=== PATIENT | female | born 1970 | race Caucasian/White ===

== ENCOUNTER 2017-02-12 01:47 | Observation (INO) | payer BC ==
--- OUTSIDE RECORDS SUMMARY | 2017-02-12 01:55 | XMS REPORT | Continuity of Care Document ---
:1970 Author Organization [employer] [place] [address] Care Team Providers Name Role Phone Unavailable Primary Care Provider Unavailable Source Comments This disclosure is being made pursuant to the [employer] program and maynot contain all information available regarding this patient.[facility] Active Allergies and Adverse Reactions Not on File Current Medications Be aware that medications may not be up to date as of this document. Alwaysverify current medications with the patient. Not on file Active Problems Not on file Social History Tobacco Use Types Packs/Day Years Used Date Never Assessed Plan of Care Health Maintenance Due Date Last Done Comments Retired-Pertussis Vaccine Adult 1988 Retired-Tetanus Vaccine Adult 1988 Pap Smear 1990 Mammogram 2009 Retired-INFLUENZA VACCINE 05/08/2015 Results from Last 3 Months Not on file
--- NOTE | 2017-02-12 02:01 | ERNOTE ---
Abdominal HPI - General Source: patient Exam Limitations: no limitations - Immun/Allergies/Home Medications Allergies/Adverse Reactions: Allergies paclitaxel [From Taxol] Allergy (Verified 02/12/17 01:55) Home Medications: HOME MEDICATIONS Insulin Aspart [Novolog Flexpen] 30 unit SQ TID 02/12/17 [Last Taken Unknown] Insulin Glargine,Hum.rec.anlog [Lantus] 60 units SC HS 02/12/17 [Last Taken Unknown] - History of Present Illness Narrative: Pt states she had onset of abdominal pain at 05:00 yesterday this progressed and she presented to [facility] where she was diagnosed with acute appendicitis. Dr. Walsh called and requested transfer as they do not have a general surgeon data control assistant. I spoke with Dr. Hoang and he agreed to accept the patient. Pt brought here by [facility] from [facility]. Pt arrives stable and alert and oriented in some discomfort. Timing: constant Quality: moderate, severe Physical Exam - Physical Exam General Appearance: Present: wd/wn, alert, mild distress Eye Exam: Normal inspection: bilateral, PERRL: bilateral Ears, Nose, Throat: Present: normal ENT inspection Neck: Present: normal inspection, supple Respiratory: Present: no respiratory distress, no accessory muscle use, lungs clear Cardiovascular/Chest: Present: regular rate, rhythm, no murmur Gastrointestinal/Abdominal: Present: normal bowel sounds, tenderness - RLQ, guarding Extremity Exam: Present: normal inspection, normal range of motion Neurological Exam: Present: alert, oriented, no motor/sensory deficits Skin Exam: Present: normal color, warm/dry ED Progress - Vital Signs Patient's Vital Signs:: I have reviewed the patient's vital signs. - Progress/Reassessment Progress Note-Subjective: 02/12/17 01:59 Spoke with Garima MALDONADOP hospitalist she agrees with admit. Notified her of patient's arrival. Departure - Departure Clinical Impression: Appendicitis Qualifiers: Appendicitis type: acute appendicitis Acute appendicitis type: with localized peritonitis Qualified Code(s): K35.3 - Acute appendicitis with localized peritonitis Disposition: [facility] Condition: Fair
--- OUTSIDE RECORDS SUMMARY | 2017-02-12 02:15 | XMS REPORT | Continuity of Care Document ---
:1970 Author Organization [employer] [place] [address] Care Team Providers Name Role Phone Unavailable Primary Care Provider Unavailable Source Comments This disclosure is being made pursuant to the [employer] program and maynot contain all information available regarding this patient.[facility] Active Allergies and Adverse Reactions Not on [...]
[2017-02-12] MEDS ORDERED: HYDROmorphone HCL 1 MG/ML DISP.SYRIN IV ONE (02:46)
[2017-02-12] MEDS ORDERED: ONDANSETRON HCL/PF 2 MG/ML VIAL IV ONE (02:46)
[2017-02-12] MEDS ORDERED: ONDANSETRON HCL/PF 2 MG/ML VIAL IV PRN (02:46)
[2017-02-12] MEDS ORDERED: ACETAMINOPHEN 325 MG TABLET PO PRN (02:49)
[2017-02-12] MEDS ORDERED: NORMAL SALINE 1,000 ML IV SCH (03:00)
[2017-02-12] MEDS ORDERED: PANTOPRAZOLE SODIUM 40 MG in NORMAL SALINE 100 ML IV SCH (03:00)
[2017-02-12 03:47] LABS: Prothrombin Time (Patient) 11.9 Seconds (9.4-11.4)
[2017-02-12 03:58] LABS: INR 1.14 INR (0.90-1.10); Partial Thrombolplastin Time 27.8 Seconds (24-32)
[2017-02-12] MEDS ORDERED: LEVOFLOXACIN/D5W 750 MG/150 ML BAG IV SCH (04:00)
[2017-02-12] MEDS ORDERED: FLUCONAZOLE 150 MG TABLET PO ONE (04:11)
--- NOTE | 2017-02-12 04:11 | HP ---
<Garima Blackwell - Last Filed: 02/12/17 03:39> Chief Complaint - Chief Complaint Date of Service: 02/12/17 Time of Service: 02:45 Chief Complaint: acute appendicitis History of Present Illness: Any is a 46 year old female with a PMH of DM (on insulin), morbid obesity, breast ca (last chemo 07/2016) who presented to [facility] with abdominal pain since 5 am the previous morning with n/v. temp 102 in [facility]. Labs at [facility] significant for wbc 13.6 with 84.4% neutrophils and 19 bands, glucose 270, bilirubin 1.7, amylase/lipase wnl. ct of abdomen/pelvis significant for acute appendicitis with mild intraperitoneal fluid, no evidence of abscess or appendiceal rupture. Patient transferred to [facility] for surgical consult and management of acute appendicitis. pt denies cp/dyspnea. c/o abdominal pain. states possible history of "mild sleep apnea" and 2 "prior episodes of an enlarged heart" but denies cardiomyopathy or CHF. Patient admitted for acute appendicitis with likely appendectomy this am. - Patient's Past Medical History Patient History - Medical: Cataracts, Diabetes Type 2, Obesity Patient History - Cardiac/Respiratory: Cardiomyopathy, Sleep Apnea - possible Patient History - Cancer: Breast Patient History - Surgical Procedures: Cataracts, ENT Patient History - Other: None LMP (females 10-50): unknown - pt states she believes 1 year ago - Family History Family History:: no family history of premature - Family History Father Family History - Medical: Family History - Cardiac/Respiratory: CHF, COPD Family History - Cancer: Bone, Myeloma mothe Family History - Medical: Family History - Cardiac/Respiratory: Myocardial Infarction Family History - Cancer: Breast - Social History Living Situations: spouse Abuse History: No History of abuse Psych History: Hx of Depression Smoking Status: Former smoker Have you smoked in the past 12 months: No Do you dip or chew tobacco: No Smoking Stop Date: 02/12/09 Patient requests Smoking Cessation Consult: No Initiate information on Smoking Cessation: No Alcohol Use: none Drug Use: none - Immunizations Immunizations Up to Date: Yes Review Of Systems (GEN) - Review of Systems Generalized/Overall Review: Present: Chills, Fever, Malaise EENTM: Present: No Symptoms Reported Respiratory: Present: No Symptoms Reported Cardiac: Present: No Symptoms Reported Abdominal: Present: Nausea, Vomiting, Abdominal Pain. Absent: Diarrhea Genitourinary: Present: No Symptoms Reported Musculoskeletal: Present: No Symptoms Reported Neurological: Present: No Symptoms Reported Skin: Present: No Symptoms Reported Endocrine: Present: No Symptoms Reported Misc: All systems neg except as marked Allergies/Adverse Reactions: Allergies Allergy/AdvReac Type Severity Reaction Status Date / Time paclitaxel [From Taxol] Allergy Verified 02/12/17 01:55 Home Medications: HOME MEDICATIONS Insulin Aspart [Novolog Flexpen] 30 unit SQ AC 02/12/17 [Last Taken Unknown] Insulin Glargine,Hum.rec.anlog [Lantus] 60 units SC HS 02/12/17 [Last Taken 02/21] Exam - Exam Vital Signs: Vital Signs - Last Taken Temp 36.7 C 02/12/17 02:13 Pulse 111 H 02/12/17 02:13 Resp 22 H 02/12/17 02:13 BP 116/74 02/12/17 02:13 Pulse Ox 91 02/12/17 02:13 Constitutional: Present: Alert, Cooperative, Mild distress ENT Exam: Present: hearing grossly normal Eye Exam: bilateral eye: normal inspection, PERRL Neck: Present: non-tender, supple Back Exam: Present: no vertebral tenderness Breasts: Present: Exam deferred Respiratory: Present: chest non-tender, no respiratory distress, no accessory muscle use, decreased breath sounds Cardiovascular/Chest: Present: normal peripheral pulses, regular rate, rhythm, no chest tenderness, tachycardia, systolic murmur - 2/4 Peripheral Pulses: dorsalis-pedis (R): 2+, dorsalis-pedis (L): 2+, radial (R): 2 +, radial (L): 2+ Abdomen: Present: soft, tender, guarding, rebound tenderness /Rectal: Present: Exam deferred Extremity: Present: non-tender, no pedal edema Skin Exam: Present: normal color, warm/dry, no cyanosis Assessment/Plan - Narrative Narrative: Acute appendicitis - consulted Dr. Arroyo, who will see her this am. - updated him on pt condition and reviewed [facility] labs and CT with him. - Start on abx (Dr. Arroyo in agreement) - CT shows mild free intraperitoneal fluid - ? intra-abdominal infection - Levaquin 750 mg iv Daily - Day #1 - zosyn 3.375 iv q 6 hours - Day #1 - Likely appendectomy this am, await consult by surgery - Labs show elevated wbc with high level of bands, pt with 102 fever at [facility]; tachycardic with elevated RR at [facility] - order labs / blood cultures to rule out sepsis. - check UA and culture as additional source of infection. - IV fluid bolus ordered after admission - patient is cleared for surgery this am. - higher risk due to history of tobacco abuse, morbid obesity, diabetes and history of cardiomyopathy. - higher risk discussed with patient, still wishes to proceed with surgery. - monitor on telemetry / cont pulse ox. - EKG shows sinus tachycardia with no st-t wave changes. DM - accu-checks QID - sliding scale insulin as needed - will need tight glycemic control post op for better surgical wound healing and improved outcomes. Sleep apnea, suspected - patient admits to "possible mild sleep apnea" - does not wear cpap at home - cont pulse ox - supplemental O2 as needed to keep sats above 90% Code status: full code VTE: early ambulation unless made inpatient postop gi proph: iv protonix. - Assessment/Plan (1) Acute appendicitis Problem: Acute QualifierTitle: Acute appendicitis type: unspecified acute appendicitis type Qualified Code(s): K35.80 - Unspecified acute appendicitis (2) Morbid obesity Problem: Chronic QualifierTitle: Obesity type: due to excess calories Qualified Code(s): E66.01 - Morbid (severe) obesity due to excess calories (3) Diabetes Problem: Chronic QualifierTitle: Diabetes mellitus type: type 2 Diabetes mellitus complication status: with hyperglycemia Diabetes mellitus mcfp insulin use: with mcfp use Qualified Code(s): E11.65 - Type 2 diabetes mellitus with hyperglycemia; Z79.4 - long-term (current) use of insulin (4) Breast CA Problem: Chronic QualifierTitle: Breast location: unspecified site of breast Estrogen receptor status: unspecified Patient sex: female Laterality: unspecified laterality Qualified Code(s): C50.919 - Malignant neoplasm of unspecified site of unspecified female breast (5) Sleep apnea Problem: Suspected QualifierTitle: Sleep apnea type: unspecified type Qualified Code(s): G47.30 - Sleep apnea, unspecified (6) Cardiomyopathy Problem: Chronic QualifierTitle: Cardiomyopathy type: unspecified Qualified Code(s): I42.9 - Cardiomyopathy, unspecified <Chris Altamirano - Last Filed: 02/12/17 09:22> Immunizations: IMMUNIZATION HX Immunizations Up to Date Yes Exam - Exam Vital Signs: Vital Signs - Last Taken Temp 37.1 C 02/12/17 06:24 Pulse 108 H 02/12/17 06:24 Resp 16 02/12/17 06:24 BP 117/69 02/12/17 06:24 Pulse Ox 96 02/12/17 06:24 Diagnostic Studies: Abnormal Lab Results 02/12/17 02/12/17 02/12/17 Range/Units 02:50 02:50 04:12 PT 11.9 H (9.4-11.4) Seconds INR (Anticoag Therapy) 1.14 H (0.90-1.10) INR Procalcitonin 1.80 H (0.05-0.50) ng/mL Urine Protein 100 H (NEGATIVE) mg/dL Urine Glucose (UA) 100 H (NEGATIVE) mg/dL Urine Bilirubin 3 H (NEGATIVE) mg/dl Ur Epithelial Cells 5-10 H (0-5) /hpf Laboratory Results PT 11.9 Seconds (9.4-11.4) H 02/12/17 02:50 INR (Anticoag Therapy) 1.14 INR (0.90-1.10) H 02/12/17 02:50 PTT ([place]) 27.8 Seconds (24-32) 02/12/17 02:50 Lactic Acid, Venous 1.7 mmol/L (0.4-1.9) 02/12/17 02:50 Procalcitonin 1.80 ng/mL (0.05-0.50) H 02/12/17 02:50 Serum HCG, Qual Negative (NEGATIVE) 02/12/17 02:50 Urine Color Reddish brown 02/12/17 04:12 Urine Appearance Clear 02/12/17 04:12 Urine pH 5.5 pH (5.0-7.0) 02/12/17 04:12 Ur Specific [place] 1.010 SP.GR. (1.005-1.010) 02/12/17 04:12 Urine Protein 100 mg/dL (NEGATIVE) H 02/12/17 04:12 Urine Glucose (UA) 100 mg/dL (NEGATIVE) H 02/12/17 04:12 Urine Ketones 15 mg/dL (NEGATIVE) 02/12/17 04:12 Urine Blood Negative /ul (NEGATIVE) 02/12/17 04:12 Urine Nitrate Negative (NEGATIVE) 02/12/17 04:12 Urine Bilirubin 3 mg/dl (NEGATIVE) H 02/12/17 04:12 Urine Ictotest Negative (NEGATIVE) 02/12/17 04:12 Prot Sulfosalicylic Acd Negative mg/dL (0) 02/12/17 04:12 Urine Urobilinogen Normal EU/dl (NORMAL) 02/12/17 04:12 Ur Leukocyte Esterase Negative /ul (NEGATIVE) 02/12/17 04:12 Urine RBC None seen /hpf (0-5) 02/12/17 04:12 Urine WBC 0-5 /hpf (0-5) 02/12/17 04:12 Ur Epithelial Cells 5-10 /hpf (0-5) H 02/12/17 04:12 Urine Bacteria None seen (NONE) 02/12/17 04:12 Urine Culture Comments Culture to follow 02/12/17 04:12 Assessment/Plan - Narrative Narrative: I personally directed the care of this patient provided by our nurse practitioner hospitalist. There are no contraindications to appendectomy pending surgical consultation.
[2017-02-12 04:18] LABS: Urine Bilirubin 3 mg/dl (NEGATIVE); Urine Blood Negative /ul (NEGATIVE); Urine Ketone 15 mg/dL (NEGATIVE); Urine Nitrite Negative (NEGATIVE); Urine Protein 100 mg/dL (NEGATIVE); Urine Urobilinogen Normal (NORMAL); Urine pH 5.5 pH (5.0-7.0)
[2017-02-12 04:19] LABS: Urine Appearance Clear; Urine WBC 0-5 /hpf (0-5)
[2017-02-12 04:20] LABS: Urine Bacteria None Seen; Urine RBC None Seen /hpf (0-5)
[2017-02-12] MEDS ORDERED: FLUCONAZOLE 100 MG TABLET ONE (04:49)
[2017-02-12] MEDS ORDERED: RINGERS SOLUTION,LACTATED 1,000 ML IV PRN (05:52)
[2017-02-12] MEDS: PIPERACILLIN SODIUM/TAZOBACTAM 3.375 GM in DEXTROSE 5 % IN WATER 100 ML IV SCH ×4 (06:21→11:17)
[2017-02-12] MEDS: HYDROmorphone HCL 1 MG/ML DISP.SYRIN IV PRN ×4 (06:46→14:53)
[2017-02-12] MEDS: INSULIN LISPRO 100 UNITS/ML VIAL SC SCH ×4 (06:48→11:28)
[2017-02-12 09:32] LABS: Hematocrit 43.8 % (37.0-47.0); Hemoglobin 13.6 gm/dL (12.5-16.0); Mean Cell Volume 78.5 fl (78-100); Mean Corpuscular Hemoglobin 24.4 pg (27-31); Mean Corpuscular Hgb Conc 31.1 g/dl (32-36); Mean Platelet Volume 8.8 fl (6.0-9.5); Neutrophil % 81.1 % (42-75.0); Platelet Count 318 K/mm3 (150-450); Red Blood Count 5.58 M/mm3 (4.2-5.4); Red Cell Distribution Width 16.5 % (11.5-14.0); White Blood Count 17.3 K/mm3 (4.0-10.5)
--- NOTE | 2017-02-12 13:51 | CONS ---
HPI - General Date of Service: 02/12/17 Narrative: I have been asked to see this 46 y/o white female for acute appendicitis. She was seen in the [place] ER where the diagnosis was established and transferred to [facility] ER and admitted to the hospitalist service. She was given IV antibiotics and was hydrated. She currently complains of RLQ abdominal pain and pain with movement. WBC was 17K on admission. She has a tentative OR start at 1400. Source: patient, RN/MD Exam Limitations: no limitations - History of Present Illness Allergies/Adverse Reactions: Allergies paclitaxel [From Taxol] Allergy (Verified 02/12/17 01:55) Home Medications: Home Medications Medication Instructions Recorded Last Taken Insulin Aspart [Novolog Flexpen] 30 unit SQ AC 02/12/17 Unknown Insulin Glargine,Hum.rec.anlog 60 units SC HS 02/12/17 02/10/17 [Lantus] - Patient's Past Medical History Patient History - Medical: Cataracts, Diabetes Type 2, Obesity Patient History - Cardiac/Respiratory: Cardiomyopathy, Sleep Apnea - possible Patient History - Cancer: Breast Patient History - Surgical Procedures: Cataracts, ENT Patient History - Other: None LMP (females 10-50): unknown - pt states she believes 1 year ago - Family History Family History:: no family history of premature - Family History Father Family History - Medical: Family History - Cardiac/Respiratory: CHF, COPD Family History - Cancer: Bone, Myeloma mothe Family History - Medical: Family History - Cardiac/Respiratory: Myocardial Infarction Family History - Cancer: Breast - Social History Living Situations: spouse Abuse History: No History of abuse Psych History: Hx of Depression Smoking Status: Former smoker Have you smoked in the past 12 months: No Do you dip or chew tobacco: No Smoking Stop Date: 02/12/09 Patient requests Smoking Cessation Consult: No Initiate information on Smoking Cessation: No Alcohol Use: none Drug Use: none - Immunizations Immunizations Up to Date: Yes Medications - Medications Current Medications: Current Medications Hydromorphone HCl (Dilaudid) 0.5 mg IV Q1H PRN PRN Reason: Severe Pain Stop: 03/14/17 02:46 Last Admin: 02/12/17 13:15 Dose: 0.5 mg Pantoprazole Sodium 40 mg/ (Sodium Chloride) 100 mls @ 400 mls/hr IV HS EUFEMIA Stop: 03/14/17 03:01 Last Infusion: 02/12/17 04:34 Dose: Infused Levofloxacin/Dextrose (Levaquin) 750 mg in 150 mls @ 100 mls/hr IV Q24H EUFEMIA PRN Reason: Protocol Stop: 03/14/17 04:01 Last Infusion: 02/12/17 06:12 Dose: Infused Piperacillin Sod/Tazobactam (Sod 3.375 gm/ Dextrose/Water) 100 mls @ 25 mls/hr IV Q6H EUFEMIA PRN Reason: Protocol Stop: 03/14/17 05:01 Last Admin: 02/12/17 11:17 Dose: 25 mls/hr Lactated Ringer's (Lactated Ringers) 1,000 mls @ 125 mls/hr IV .Q8H PRN PRN Reason: HYDRATION Stop: 03/14/17 05:53 Last Admin: 02/12/17 06:30 Dose: 125 mls/hr Insulin Human Lispro (Humalog) 0 units SC ACHS EUFEMIA PRN Reason: Protocol Stop: 03/14/17 07:01 Last Admin: 02/12/17 11:28 Dose: 4 units Insulin Human Lispro (Humalog) 30 units SC AC EUFEMIA Stop: 03/14/17 07:01 Last Admin: 02/12/17 11:27 Dose: 30 units Physical Examination - Exam Narrative: Pt is sleeping and was awakened for physical exam. Vital Signs: Vital Signs - Last Taken Temp 37.3 C 02/12/17 10:11 Pulse 130 H 02/12/17 10:11 Resp 16 02/12/17 10:11 BP 124/54 02/12/17 10:11 Pulse Ox 95 02/12/17 10:11 O2 Oxygen Delivery Method Room Air Constitutional: Present: Alert, Oriented x3, Cooperative, Moderate distress, Morbidly obese ENT Exam: Present: normal ENT inspection Eye Exam: bilateral eye: normal inspection Neck: Present: normal inspection Respiratory: Present: no respiratory distress Abdomen: Present: tender - RLQ. Negative Rovsing, other - No umbilical hernia apparent. Extremity: Present: normal inspection Skin Exam: Present: warm/dry Neurologic: Present: no motor/sensory deficits - Results and Findings: Lab/Microbiology results last 24 hrs: Abnormal/Pending Laboratory Last 24 HRS 06/04/2302/12/17 02/12/17 09:25 04:12 02:50 WBC 17.3 H RBC 5.58 H MCH 24.4 L MCHC 31.1 L RDW 16.5 H Immature Gran # (Auto) 0.07 H Neutrophils % 81.1 H Lymphocytes % 11.9 L Neutrophils # 14.0 H Monocytes # 1.1 H PT 11.9 H INR (Anticoag Therapy) 1.14 H Procalcitonin Urine Protein 100 H Urine Glucose (UA) 100 H Urine Bilirubin 3 H Ur Epithelial Cells 5-10 H 02/12/17 02:50 WBC RBC MCH MCHC RDW Immature Gran # (Auto) Neutrophils % Lymphocytes % Neutrophils # Monocytes # PT INR (Anticoag Therapy) Procalcitonin 1.80 H Urine Protein Urine Glucose (UA) Urine Bilirubin Ur Epithelial Cells Culture 02/12/17 Unknown CELESTE Preparation - Final Vaginal 02/12/17 Unknown Wet Prep - Final Vaginal - Assessments/Findings (1) Acute appendicitis Diagnosis(s): I have recommended a laparoscopic appendectomy. The options, risks, and benefits were reviewed with the patient. Including but not exclusive to Infection, bleeding, hernia, injury to other structures, conversion to open procedure. She seems to understand, asks appropriate questions, and desires to proceed. ADDENDUM: It has come to my attention and I have been informed by the nursing mixing and dispensing supervisor that we do not have staffing for the ICU this evening. This would be critical in the unlikely event of adverse outcomes and the necessity for SCU admission postoperatively. Especially given her comorbidities. I recommend transfer to a higher level of care and Dr. Paniagua has been made aware as well and will facilitate her transfer to [place]. Problem: Acute Qualifiers: Acute appendicitis type: with localized peritonitis Qualified Code(s): K35.3 - Acute appendicitis with localized peritonitis
--- NOTE | 2017-02-12 14:31 | DS ---
(1) Acute appendicitis Problem: Acute Qualifiers: Acute appendicitis type: with localized peritonitis Qualified Code(s): K35.3 - Acute appendicitis with localized peritonitis (2) Breast CA Problem: Chronic Qualifiers: Breast location: unspecified site of breast Estrogen receptor status: unspecified Patient sex: female Laterality: unspecified laterality Qualified Code(s): C50.919 - Malignant neoplasm of unspecified site of unspecified female breast (3) Diabetes Problem: Chronic Qualifiers: Diabetes mellitus type: type 2 Diabetes mellitus complication status: with hyperglycemia Diabetes mellitus intermediate project manager insulin use: with intermediate project manager use Qualified Code(s): E11.65 - Type 2 diabetes mellitus with hyperglycemia; Z79.4 - ferry terminal supervisor (current) use of insulin (4) Morbid obesity Problem: Chronic Qualifiers: Obesity type: due to excess calories Qualified Code(s): E66.01 - Morbid ( severe) obesity due to excess calories Description of Stay: Patient placed on IV Zosyn. Surgery consulted. Plan was to do surgery here. About 1300 hour today, I was notified there was not enough nursing staff to take care of the patient post op in our ICU. I did not feel comfortable managing her post op on our regular floor due to multiple risk factors, so I arranged for her to be transferred to the [facility] by ambulance. The receiving doctor is Dr. Juan. Procedures Performed: none Discharge Disposition: [facility] Disposition: [facility] Condition: Fair Discharge Activity: Activity as tolerated Discharge Diet: NPO Consultation Done:: Dr Hoang Problem Oriented Discharge Instructions to Patient/Family: Appendicitis, Easy- to-Read Complete Home Medications List: Complete Home Medication List: Dextrose 5 % in Water [Dextrose 5%/Water] 1 ml IV Q6H #0 bag 02/12/17 Insulin Aspart [Novolog Flexpen] 30 unit SQ AC 02/12/17 Insulin Glargine,Hum.rec.anlog [Lantus] 60 units SC HS 02/12/17 Insulin Lispro [Humalog] 0 units SC ACHS vial 02/12/17 Levofloxacin/D5w [Levaquin] 750 mg IV Q24H bag 02/12/17 Normal Saline [Sodium Chloride 0.9%] 1 ml IV HS #0 bag 02/12/17 Ondansetron HCl/Pf [Zofran] 4 mg IV Q4H PRN #0 vial 02/12/17 Pantoprazole Sodium [Protonix] 40 mg IV HS vial 02/12/17 Piperacillin Sodium/Tazobactam [Zosyn] 3.375 gm IV Q6H vial 02/12/17 Ringers Solution,Lactated [Lactated Ringers] 1 ml IV .Q8H PRN #0 bag 02/12/17
[2017-02-12 14:52] VITALS: BP 138/61
[2017-02-12] MEDS ORDERED: INSULIN GLARGINE,HUM.REC.ANLOG 100 UNITS/ML VIAL SC SCH (21:00)
== END 2017-02-12 15:14 | disposition short-term general hospital (02) ==
LOC: ER 01:47 → UNDOADMOB 02:12 → MS 02:12
PROVIDERS: ADMIT Nurse Practitioner Critical Care Medicine; ATTEND Specialist
DX: K35.3 Acute appendicitis with localized peritonitis (principal); E11.65 Type 2 diabetes mellitus with hyperglycemia; Z79.4 Long term (current) use of insulin; E66.01 Morbid (severe) obesity due to excess calories; C50.919 Malignant neoplasm of unspecified site of unspecified female breast
CPT/HCPCS: 71010; 81001; 83605; 84145; 84703; 85025; 85610; 85730; 87040; 87086; 87210; 87220; 93005; 96365; 96366; 96367; 96375; 96376; 99284; G0378; J2405